=== PATIENT | male | born 1960 | race Caucasian/White ===

== ENCOUNTER 2021-04-23 01:04 | Day surgery (SDC) | payer OTHER, SELFPAY ==
[2021-04-10 13:21] VITALS: BMI 44.0
--- NOTE | 2021-04-20 13:04 | PM.HPGS ---
History of Present Illness History of Present Illness Consent: Risks, benefits, and alternatives have been discussed and questions answered. Patient agrees to proceed with procedure. Chief complaint: positive cologuard, lopez;s esophagus Narrative: Chino Doe is a 60 year old male Referred for colon cancer screening. I recent Cologuard test was positive. He also has Lopez's esophagus. He was last examined about 2 years ago Review of Systems Review of Systems: All systems reviewed & are unremarkable except as noted in HPI and below PMFSH Past Medical History Medical History RAHUL (obstructive sleep apnea) Surgical History Surgical History History of esophagogastroduodenoscopy (EGD) Social History Social History Smoking status: Never smoker Alcohol intake: former Alcohol use details: no alcohol use for 20 years Substance use: never Substance use type: does not use Living arrangements: alone Spiritual care concerns: No Meds Home Medications and Allergies Home Medications Medication Instructions Recorded Confirmed Type lisinopril 20 mg tablet 20 mg PO DAILY 03/06/21 04/23/21 History omeprazole 40 mg capsule,delayed 40 mg PO DAILY #90 cap 03/06/21 04/23/21 Rx release cyclobenzaprine 10 mg PO TID PRN 04/10/21 04/23/21 History Allergies Allergy/AdvReac Type Severity Reaction Status Date / Time latex Allergy Severe SWELLING, Verified 04/23/21 08:04 SOB banana Allergy Intermediate CRAMPING Verified 04/23/21 08:04 Exam Resp: Auscultation: clear to auscultation bilaterally Cardio: Rate: regular rate Rhythm: regular rhythm GI: GI Palp: Yes Soft to palpation and No Tenderness to palpation present (GI) Assessment and Plan Assessment and plan (1) Colon cancer screening: Code(s): Z12.11 - Encounter for screening for malignant neoplasm of colon Status: Acute Assessment and Plan: Colonoscopy with possible biopsy or polypectomy or cautery or injection of substances. (2) Lopez's esophagus: Code(s): K22.70 - Lopez's esophagus without dysplasia Status: Acute Assessment and Plan: EGD with possible biopsy or dilatation or cautery.
[2021-04-23 08:05] VITALS: BP 129/81; PULSE 74; RESP 20; TEMP 36.4; O2SAT 95; BMI 43.6
[2021-04-23] MEDS: LACTATED RINGERS 1,000 ML 150 ML IV CONT (08:07)
--- NOTE | 2021-04-23 08:10 | WPDANESEPPF ---
Anes - Initial Pre Proc Eval Procedure: Operation Date: 04/23/21 09:00 Proposed Procedures p Esophagogastroduodenoscopy & Colonoscopy - Jasbir Meng MD Date/Time: 04/23/21 08:10 Surgeon: Jasbir Meng MD Pre Op Diagnosis: positive cologuard, lopez;s esophagus Patient Data Age: 60 Gender: M Height: 1.8 m Weight: 141.9 kg Last Vital Signs Temp 36.4 C L 04/23/21 08:05 Pulse 74 04/23/21 08:05 Resp 20 04/23/21 08:05 BP 129/81 04/23/21 08:05 Pulse Ox 95 04/23/21 08:05 Allergies Allergy/AdvReac Type Severity Reaction Status Date / Time latex Allergy Severe SWELLING, Verified 04/23/21 08:04 SOB banana Allergy Intermediate CRAMPING Verified 04/23/21 08:04 Home Medications Medication Instructions Recorded Confirmed Type lisinopril 20 mg tablet 20 mg PO DAILY 03/06/21 04/23/21 History omeprazole 40 mg capsule,delayed 40 mg PO DAILY #90 cap 03/06/21 04/23/21 Rx release cyclobenzaprine 10 mg PO TID PRN 04/10/21 04/23/21 History Patient hx anesthesia problems: none Family hx anesthesia problems: none Results Review: All pre-operative results and documents have been reviewed as part of the pre-operative evaluation. [facility] Past Medical History Medical History (Updated 04/23/21 @ 08:10 by Pablo Gallardo MD) RAHUL (obstructive sleep apnea) Surgical History Surgical History (Updated 04/23/21 @ 08:10 by Pablo Gallardo MD) History of esophagogastroduodenoscopy (EGD) Social History Social History Smoking status: Never smoker Alcohol intake: former Alcohol use details: no alcohol use for 20 years Substance use: never Substance use type: does not use Living arrangements: alone Spiritual care concerns: No Anes - Eval Final PreProcedure Day of Procedure 04/23/21 08:10 Patient weight: morbidly obese Heart: regular rate and rhythm Lungs: clear to auscultation Airway: Mallampati scale class II Neurological: alert and oriented Last oral intake: >/= 8 hours ASA classification: III Emergent: no Anesthetic plan: proceed Anesthesia type and monitoring: general GIVS and standard monitoring Results Review: All pre-operative results and documents have been reviewed as part of the pre-operative evaluation. Informed Consent: The patient's anesthetic plan and its attendant risks and benefits were discussed with the patient/family/POA. Questions were solicited and answers provided to the satisfaction of the patient/family/POA.
--- NOTE | 2021-04-23 09:07 | SUR.OPER ---
EGD ended at 902, Colonoscopy began at 907
[2021-04-23 09:20] VITALS: BP 103/60; PULSE 70; RESP 20; O2SAT 100
[2021-04-23 09:30] VITALS: BP 101/64; PULSE 65; RESP 16; O2SAT 100
[2021-04-23 09:40] VITALS: BP 116/59; PULSE 64; RESP 23; O2SAT 100
== END 2021-04-23 09:47 | disposition home or self-care (01) ==
PROVIDERS: PCP Internal Medicine; Visit Provider Internal Medicine Gastroenterology
PROC: 0DJ08ZZ Inspection of Upper Intestinal Tract, Via Natural or Artificial Opening Endoscopic (ICD-10-PCS; CPT 43235; principal; 2021-04-23 09:00)
DX: Z12.11 Encounter for screening for malignant neoplasm of colon (principal); R19.5 Other fecal abnormalities; K20.90 Esophagitis, unspecified without bleeding; K63.5 Polyp of colon; K22.70 Barrett's esophagus without dysplasia; G47.33 Obstructive sleep apnea (adult) (pediatric); E66.01 Morbid (severe) obesity due to excess calories; Z68.41 Body mass index [BMI] 40.0-44.9, adult
CPT/HCPCS: 45380; 43239; 88305; J2704; J7120

== ENCOUNTER 2023-05-22 00:13 | Day surgery (SDC) | payer OTHER, SELFPAY ==
[2023-04-29 08:39] VITALS: BMI 43.9
--- NOTE | 2023-05-20 09:08 | SUR.PREOP ---
Patient called regarding upcoming procedure. Reviewed preop instructions, appointment times, and procedure prep.
--- NOTE | 2023-05-21 17:33 | PM.HPGS ---
History of Present Illness History of Present Illness Consent: Risks, benefits, and alternatives have been discussed and questions answered. Patient agrees to proceed with procedure. Chief complaint: Arriaza's Esophagus Narrative: Chino Doe Jr. is a 62 year old male with known Arriaza's esophagus here for surveillance. He had been found to have an 8 cm long segment of Arriaza's mucosa in his esophagus. He was last examined 2 years ago. Review of Systems Review of Systems: All systems reviewed & are unremarkable except as noted in HPI and below PMFSH Past Medical History Medical History RAHUL (obstructive sleep apnea) Surgical History Surgical History History of esophagogastroduodenoscopy (EGD) Social History Social History Smoking status: Never smoker Alcohol intake: former Alcohol use details: no alcohol use for 20 years Substance use: never Substance use type: does not use Living arrangements: alone Spiritual care concerns: No Meds Home Medications and Allergies Home Medications Medication Instructions Recorded Confirmed Type lisinopril 20 mg tablet 20 mg PO DAILY 03/06/21 04/29/23 History omeprazole 40 mg capsule,delayed See Rx Instructions .Route 12/10/22 04/29/23 Rx release .COMPLEX #90 caps Allergies Allergy/AdvReac Type Severity Reaction Status Date / Time latex Allergy Severe SWELLING, Verified 05/22/23 06:22 SOB banana Allergy Intermediate CRAMPING Verified 05/22/23 06:22 Exam Const: General: alert Orientation/consciousness: patient oriented x3 Resp: Auscultation: clear to auscultation bilaterally Cardio: Rhythm: regular rhythm GI: GI Palp: Yes Soft to palpation and No Tenderness to palpation present (GI) Neuro: General: patient oriented x3 Assessment and Plan Assessment and plan (1) Arriaza's esophagus: Code(s): K22.70 - Arriaza's esophagus without dysplasia Status: Acute Assessment and Plan: EGD with possible biopsy or dilatation or cautery.
[2023-05-22 06:25] VITALS: BP 145/83; PULSE 61; RESP 18; TEMP 36.2; O2SAT 96
[2023-05-22] MEDS: LACTATED RINGERS 1,000 ML 150 ML IV CONT (06:33)
--- NOTE | 2023-05-22 07:26 | WPDANESEPPF ---
Anes - Initial Pre Proc Eval Procedure: Operation Date: 05/22/23 07:30 Proposed Procedures p Esophagogastroduodenoscopy - Jasbir Meng MD Date/Time: 05/22/23 07:26 Surgeon: Jasbir Meng MD Pre Op Diagnosis: Arriaza's Esophagus Patient Data Age: 62 Gender: M Height: 1.8 m Weight: 140.9 kg Last Vital Signs Temp 97.1 F L 05/22/23 06:25 Pulse 61 05/22/23 06:25 Resp 18 05/22/23 06:25 BP 145/83 H 05/22/23 06:25 Pulse Ox 96 05/22/23 06:25 O2 Del Method Room Air 05/22/23 06:25 Allergies Allergy/AdvReac Type Severity Reaction Status Date / Time latex Allergy Severe SWELLING, Verified 05/22/23 06:22 SOB banana Allergy Intermediate CRAMPING Verified 05/22/23 06:22 Home Medications Medication Instructions Recorded Confirmed Type lisinopril 20 mg tablet 20 mg PO DAILY 03/06/21 04/29/23 History omeprazole 40 mg capsule,delayed See Rx Instructions .Route 12/10/22 04/29/23 Rx release .COMPLEX #90 caps Patient hx anesthesia problems: none Family hx anesthesia problems: none Results Review: All pre-operative results and documents have been reviewed as part of the pre-operative evaluation. [facility] Past Medical History Medical History RAHUL (obstructive sleep apnea) Surgical History Surgical History History of esophagogastroduodenoscopy (EGD) Social History Social History Smoking status: Never smoker Alcohol intake: former Alcohol use details: no alcohol use for 20 years Substance use: never Substance use type: does not use Living arrangements: alone Spiritual care concerns: No Anes - Eval Final PreProcedure Day of Procedure 05/22/23 07:26 Patient weight: morbidly obese Heart: regular rate and rhythm Lungs: clear to auscultation Airway: Mallampati scale class II Neurological: alert and oriented Last oral intake: >/= 8 hours ASA classification: III Emergent: no Anesthetic plan: proceed Anesthesia type and monitoring: general GIVS and standard monitoring Results Review: All pre-operative results and documents have been reviewed as part of the pre-operative evaluation. Informed Consent: The patient's anesthetic plan and its attendant risks and benefits were discussed with the patient/family/POA. Questions were solicited and answers provided to the satisfaction of the patient/family/POA.
[2023-05-22 07:44] VITALS: BP 112/67; PULSE 62; RESP 18; O2SAT 93
[2023-05-22] MEDS: BENZOCAINE (*SP) 60 ML SPRAY CAN (HURRICAINE) 1 SPRAY MUCOUS MEM (07:48)
[2023-05-22 07:54] VITALS: BP 98/64; PULSE 57; RESP 18; O2SAT 96
[2023-05-22 08:04] VITALS: BP 120/73; PULSE 52; RESP 17; O2SAT 97
== END 2023-05-22 08:13 | disposition home or self-care (01) ==
PROVIDERS: PCP Internal Medicine; Visit Provider Internal Medicine Gastroenterology
PROC: 0DJ08ZZ Inspection of Upper Intestinal Tract, Via Natural or Artificial Opening Endoscopic (ICD-10-PCS; CPT 43235; principal; 2023-05-22 07:30)
DX: K22.70 Barrett's esophagus without dysplasia (principal); K29.50 Unspecified chronic gastritis without bleeding; G47.33 Obstructive sleep apnea (adult) (pediatric); E66.01 Morbid (severe) obesity due to excess calories; Z68.41 Body mass index [BMI] 40.0-44.9, adult
CPT/HCPCS: 43239; 88305; J2704; J7120